=== PATIENT | male | born 1965 | race Caucasian/White ===

== ENCOUNTER 2019-06-28 10:36 | Outpatient (REF) | payer OTHER, SELFPAY ==
[2019-06-28 14:11] LABS: Bilirubin Negative (Negative); Blood Negative (Negative); Clarity Clear (Clear); Glucose Negative (Negative); Ketones Negative (Negative); Leukocyte Esterase Negative (Negative); Nitrite Negative (Negative); Urobilinogen 0.2 EU/dL (Up TO 0.2)
== END 2019-06-28 10:56 ==
LOC: LBN 10:36
PROVIDERS: PCP Emergency Medicine; Visit Provider Emergency Medicine
DX: R31.9 Hematuria, unspecified (principal)
CPT/HCPCS: 81003

== ENCOUNTER 2020-04-13 08:06 | Outpatient (CLI) | payer OTHER, SELFPAY | END 2020-04-13 08:26 | PROVIDERS: PCP Emergency Medicine; Visit Provider Emergency Medicine | DX: Z11.59 Encounter for screening for other viral diseases (principal) | CPT/HCPCS: U0003 ==

== ENCOUNTER 2020-04-17 11:59 | Outpatient (CLI) | payer OTHER, SELFPAY ==
[2020-04-18 11:58] LABS: COVID-19 RT-PCR UVMMC Result Negative (Negative)
== END 2020-04-17 12:19 ==
PROVIDERS: PCP Emergency Medicine; Visit Provider Emergency Medicine
DX: Z11.59 Encounter for screening for other viral diseases (principal)
CPT/HCPCS: U0003

== ENCOUNTER 2020-06-21 02:29 | Outpatient (CLI) | payer OTHER, SELFPAY ==
--- NOTE | 2020-06-21 08:50 | DI.RAD_ITS ---
EXAM: XR SHOULDER RT COMPLETE 2+V CLINICAL HISTORY: trauma,RT SHOULDER PAIN,M25.511. TECHNIQUE: 2D digital imaging was performed. COMPARISON: CR CHEST 2 VIEWS PA,LAT from 01/16/2013 FINDINGS: BONES: No acute fracture is present. No bony destructive lesion is seen. The visualized portions of the right ribs appear intact. JOINTS: No dislocation present. The AC joint is not widened. Are degenerative changes at the AC j oint and tip of the acromion. Mild degenerative changes are also seen at the glenohumeral joint. SOFT TISSUE: Normal. No pneumothorax is seen. IMPRESSION: Degenerative changes. No evidence of acute fracture. DATA REPOSITORY: RADIATION DOSE DELIVERED:
== END 2020-06-21 02:49 ==
PROVIDERS: PCP Emergency Medicine; Visit Provider Emergency Medicine
DX: M19.011 Primary osteoarthritis, right shoulder (principal)
CPT/HCPCS: 73030

== ENCOUNTER 2020-07-27 13:41 | Outpatient (REF) | payer OTHER, SELFPAY ==
[2020-07-27 13:51] LABS: Calculated LDL 99 mg/dL (<100); Cholesterol 169 mg/dL (<200); HDL Cholesterol 49 mg/dL (40-60); Triglyceride 109 mg/dL (<150)
[2020-07-27 22:33] LABS: PSA, Screening 0.5 ng/mL (0.0-3.5)
== END 2020-07-27 14:01 ==
LOC: LBN 13:41
PROVIDERS: PCP Emergency Medicine; Visit Provider Emergency Medicine
DX: Z00.00 Encounter for general adult medical examination without abnormal findings (principal); Z13.220 Encounter for screening for lipoid disorders; Z12.5 Encounter for screening for malignant neoplasm of prostate
CPT/HCPCS: 80061; 84153

== ENCOUNTER 2020-08-09 01:26 | Outpatient (CLI) | payer OTHER, SELFPAY ==
--- NOTE | 2020-08-09 06:45 | DI.MRI_ITS ---
EXAM: MR UPPER JOINT RT WO CLINICAL HISTORY: Traumatic rotator cuff tear with profound weakness,RUPTURE RT PROX BICEPS. TECHNIQUE: Multiplanar multisequence MRI was performed. COMPARISON: CR XR SHOULDER RT COMPLETE 2+V from 06/21/2020 FINDINGS: MR examination of the shoulder was performed according to the usual protocol. Bones: No fracture identified. There are moderate hypertrophic degenerative changes of the acromiocl avicular joint. There is mild marginal osteophyte formation of the glenoid and the humeral head. Mi ld subchondral cyst formation greater tuberosity of the humerus noted. Labrum: Labrum is not ideally evaluated on this noncontrast study but no definite labral tear is seen . There is some effacement of the labral contour. This is presumably degenerative. Biceps tendon: Biceps anchor is poorly visualized. Proximal biceps appears torn and retracted, proba lupe by about 2 cm. Some remaining fibers of the tendon appear to be displaced from the bicipital asya ove. Visualization of biceps is also limited proximally by tearing in the subscapularis tendon and r otator interval. Rotator cuff: There is a massive rotator cuff tear with detachment of the entire supraspinatus tendon and retraction by 4-5 cm, there is longitudinal full-thickness tearing of the subscapularis extendin g from the myotendinous junction region to the distal tendon with full-thickness tears also present a t the humeral attachment with partially retracted tendon by about 1 cm. There is a full-thickness tear of the infraspinatus tendon with marked fraying of the distal aspect, mild retraction of portions of the tendon anteriorly are noted. There is tearing in the myotendinous junction and tendon of the teres minor as well without retraction. There does not appear to be significant fatty replacement of the rotator cuff musculature. IMPRESSION: Massive rotator cuff tear with marked retraction particularly of the supraspinatus tendon component a nd retraction of superior aspect of torn infraspinatus and subscapularis tendons. Poorly defined proximal biceps tendon tear, approximately 2 cm retraction. DATA REPOSITORY:
== END 2020-08-09 01:46 ==
PROVIDERS: PCP Emergency Medicine; Visit Provider Student in an Organized Health Care Education/Training Program
DX: S46.011A Strain of muscle(s) and tendon(s) of the rotator cuff of right shoulder, initial encounter (principal); S46.211A Strain of muscle, fascia and tendon of other parts of biceps, right arm, initial encounter
CPT/HCPCS: 73221

== ENCOUNTER 2020-08-14 07:49 | Outpatient (CLI) | payer OTHER, SELFPAY ==
[2020-08-16 08:39] LABS: SARS-CoV-2 RNA Not Detected (NotDetected); SARS-CoV-2 RNA Source Nasal/Nares
== END 2020-08-14 08:09 ==
PROVIDERS: PCP Emergency Medicine; Visit Provider Student in an Organized Health Care Education/Training Program
DX: Z01.818 Encounter for other preprocedural examination (principal); S46.211A Strain of muscle, fascia and tendon of other parts of biceps, right arm, initial encounter; S46.011A Strain of muscle(s) and tendon(s) of the rotator cuff of right shoulder, initial encounter
CPT/HCPCS: U0003

== ENCOUNTER 2020-08-17 06:06 | Day surgery (SDC) | payer OTHER, SELFPAY ==
[2020-08-17] VITALS (7 sets, daily range): BP systolic 113–121; BP diastolic 64–77; PULSE 59–64; RESP 15–18; TEMP 36.2–36.7; O2SAT 95–99
[2020-08-17] MEDS: Lactated Ringers 1,000 ML 100 ML IV (07:04)
[2020-08-17] MEDS: ceFAZolin 2 GM/50 ML BAG IVPB (07:28)
[2020-08-17] MEDS: EPINEPHrine 30 MG/30 ML VIAL (10:36)
--- NOTE | 2020-08-17 10:53 | W.PM.DSUDISC ---
Discharge Plan Disposition Patient Disposition: HOME Condition: Stable Discharge Details Reason For Visit: Right shoulder surgery Attending Provider: Rich Beckett Primary Care Provider: Grzegorz Blair Home Meds and New Rx's Prescriptions: New naproxen 250 mg tablet 250 - 500 mg PO BID PRN (Reason: Moderate pain or swelling) Qty: 60 RF: 0 aspirin 81 mg tablet,delayed release (DR/EC) 81 mg PO DAILY 14 Days Qty: 14 RF: 0 oxycodone 5 mg tablet 5 - 10 mg PO Q4H PRN (Reason: moderate to severe pain) Qty: 22 RF: 0 Discharge Instructions Additional Instructions: Surgery: Shoulder arthroscopy with massive rotator cuff repair, subacromial decompression, and extensive debridement Activity: You should keep your arm at your side in a neutral position at all times except for physical therapy. Do not try to lift or raise your arm using your own muscles. You should use the sling whenever you are out of the house. You may have to adjust the abduction pillow or remove it for comfort. At home it is best to remove the sling and rest the arm on a pillow at your side or support the operative side with your other hand. You may allow the arm to dangle at your side. A physical therapy prescription will be provided separately today and sent electronically to begin in about 3 weeks. Prescriptions: Aspirin 81 mg take 1 daily to prevent a blood clot for 2 weeks Naproxen 250 mg take 1-2 every 12 hours with a meal as needed for moderate pain Oxycodone 5 mg take 1-2 every 4-6 hours as needed for severe pain You may use uyyi-gfw-mhdvyxc Tylenol (acetaminophen) as needed for mild pain. These pain medications may be taken all at once or in different combinations as needed. Also, recommend Colace (docusate) as a stool softener as surgery and pain medicine cause constipation. Dressings: Remove shoulder bandage after 3 days. Leave the sticky Steri-Strips in place until they fall off or remove them after you shower. Cover the incisions with Band-Aids or leave them open to air. You may shower after 5 days. Follow-up: 10-[address] Beckett You may take off the leg compression stockings this evening at home. You may also leave them on a few days longer if you have a history of leg swelling or edema. Let us know right away if you develop any redness, drainage, fevers, chest pain, or trouble breathing. Do not drink alcohol or drive for at least 24 hours after anesthesia. Please call the office during business hours with any questions or concerns. Referrals: Rich Beckett MD [ [facility] STAFF PHYSICIAN] - Discharge Orders Discharge Orders: Discharge Order (Routine); Ordered 08/17/20 Ordered By: Rich Beckett DS: Diagnosis Discharge Diagnosis (1) Traumatic tear of right rotator cuff: Status: Acute (2) Rupture of right proximal biceps tendon: Status: Acute
--- NOTE | 2020-08-17 11:14 | ROE_ITS ---
Date of service: 08/17/20 Time of Service: 10:53 Operative Note Operative Note DATE OF PROCEDURE: 08/17/20 PRE-OP DIAGNOSIS: Right: 1. Massive rotator cuff tear 2. Proximal biceps tendon rupture POST-OP DIAGNOSIS: other Right: 1. Massive rotator cuff tear 2. Proximal biceps tendon rupture 3. Bursitis PROCEDURE: Right: 1. Rotator cuff repair, CPT# 16450; Modifier 22: By all definitions, this was a massive full-thickness retracted rotator cuff tear requiring significantly increased preoperative counseling, operative time, surgical difficulty, increased number of implants, and will require more frequent postoperative attention with a higher risk for complication/failure. This involved repair of the subscapularis, supraspinatus, and infraspinatus using anchors and sutures to reattach the rotator cuff back to the footprint of the lesser and greater tuberosity. 2. Extensive debridement, CPT# 03204. This involved using arthroscopic hand instruments, power instruments, and radiofrequency instruments to release debride areas of labral tearing, synovitis, and chondromalacia about the biceps groove within the glenohumeral joint anteriorly, superiorly and posteriorly. 3. Subacromial decompression with partial acromioplasty, CPT# 62882. This involved using arthroscopic power instruments and a radiofrequency wand to complete a bursectomy pathologic bursa and remove bone spurs on the undersurface of the acromion. The agency sales management assistant was medically required in order to help assist in techniques above, which require positioning the arm, holding the arthroscope, and manipulating multiple instruments and sutures at the same time. This cannot be done without the help of an experienced agency sales management assistant. SURGEON: Rich Beckett GAGE DESIGNER: Ashely Zaragoza ANESTHESIA: GETA and regional ESTIMATED BLOOD LOSS: 15 PATHOLOGY: none sent COMPLICATIONS: None Patient was transported to: PACU Patient's condition: stable Implants: Arthrex: 4.75mm SwiveLocks x 8 Indications: The patient was diagnosed with the above conditions and appropriately indicated for surgical intervention. Please see complete medical record for details. Findings: Exam under anesthesia: Full, symmetrical range of motion without instability Glenohumeral joint: Significant synovitis anteriorly, superiorly, and posteriorly. Prior long head of the biceps tendon rupture. SLAP tear fraying as well as anterior and posterior labral fraying. Nearly full-thickness sub scapularis tear and full-thickness superior rotator cuff tear with disruption and retraction of the comma tissue and rotator cable. Subacromial space: Significant pathologic bursitis, especially centrally and posteriorly. Full-thickness retracted to the level of the glenoid complete supraspinatus tear and majority infraspinatus tears. Moderate undersurface subacromial bone spur. Procedure Description: In the operating room, general anesthesia was induced. Bilateral shoulders were examined. The patient was positioned in the beachchair position. All bony prominences were well-padded. Preoperative antibiotics were administered. The shoulder was prepped and draped in the usual sterile fashion. The correct patient, procedure, and side of the procedure were all verified prior to incision. Starting through the posterior portal a standard complete diagnostic arthroscopy was performed of the glenohumeral joint including inspection of the long head of the biceps, anterior and superior labrum, subscapularis tendon, supraspinatus and infraspinatus tendons, and axillary recess. The glenoid and humeral head cartilage as well as the posterior labrum were inspected from an anterior viewing portal. Significant findings and interventions noted above. The biceps tendon had been chronically ruptured and there was no labral stump/remnant in the joint. The lesser tuberosity footprint was prepared using hand and power instruments for tendon healing. A rigid cannula was inserted anteriorly. The arm was positioned in neutral. Using a 1 portal technique, a suture lasso was used to pass a suture tape fiber link through the lateral and superior subscapularis. This stitch was used for traction and passing of a fiber tape more medially and centrally in the subscapularis tendon body. The punch was used to localize placement of the anchor. Both sutures were passed through the anchor eyelet and the anchor was brought down to the bone with the sutures tensioned appropriately. The arm was brought through full external rotation demonstrating no restricted motion due to the repair and secure fixation of the tendon and anchor to bone. Starting through the posterior portal, the arthroscope was directed into the subacromial space. A lateral 50 yard line lateral portal was created. A combination of power instruments and a radiofrequency ablator were used to debride bursitis anteriorly, posteriorly, and laterally as well as expose and smooth bone spurring on the undersurface of the acromion. The coracoacromial ligament was preserved. The bursectomy was completed viewing laterally and working from posteriorly and anteriorly, and the rotator cuff was thoroughly inspected with findings noted above. Cannulas were inserted at the superior anterior lateral and superior posterior lateral margins of the acromion as well as at the lateral 50 yard line portal. The rotator cuff tear was inspected and debrided of frayed tissue at the margins exposing a massive full-thickness retracted supraspinatus infraspinatus tears. The greater was tuberosity cleared of fibrous tissue over the footprint and the bursectomy was extended posteriorly and laterally. A punch was used to localize placement the first medial row anchor starting anteriorly that was loaded with fiber tape. A suture passer was as well as a tissue grasper was used to pass both ends of this fiber tape through all layers of the tendon at the appropriate level medially. A second middle medial row anchor was inserted. A self retrieving suture passer was used to pass each end of this fiber tape through all layers of the tendon at the appropriate level medially. This process was repeated for the third posterior medial row anchor. This process was repeated for a third posterior medial row anchor. Next, a self retrieving suture passer was used to pass fiber link sutures in cinch mode anterior to the first medial row anchor, between each of the anchors, and posterior to the third medial row anchor. The rotator cuff tear was provisionally reduced through these fiber link sutures and secured to a middle row suture anchor. Lastly, a fiber tape f rom the anterior and middle anchors was brought to an anterior lateral row anterior anchor and this process repeated and then expanded suture bridge fashion for the middle and posterior lateral row anchors. An additional fiber link suture was placed most posteriorly in the infraspinatus and incorporated into the posterior lateral row anchor. Excellent tendon compression over the reduced rotator cuff repair was achieved. The repair was inspected through shoulder range of motion and found to be stable with secure fixation. The shoulder was drained of arthroscopic fluid. All portal sites were copiously irrigated. These incisions were closed using 3-0 Monocryl in a buried fashion, covered with Mastisol, Steri-Strips, Xeroform, dry gauze, and ABDs. The dressings were covered and secured with Medipore tape. The operative extremity was placed into a sling for immobilization. The patient awoke from anesthesia without complication and was transferred to the recovery room in a stable co ndition.
== END 2020-08-17 13:55 | disposition home or self-care (01) ==
PROVIDERS: PCP Emergency Medicine; Visit Provider Student in an Organized Health Care Education/Training Program
PROC: (CPT 29827; principal; 2020-08-17 07:30)
DX: S46.011A Strain of muscle(s) and tendon(s) of the rotator cuff of right shoulder, initial encounter (principal); M75.51 Bursitis of right shoulder; S46.111A Strain of muscle, fascia and tendon of long head of biceps, right arm, initial encounter; X58.XXXA Exposure to other specified factors, initial encounter
CPT/HCPCS: 29827; 29823; 29826; 76942; L3670; J0690; J1885; J2001; J2250; J2405; J2704; J3010

== ENCOUNTER → 2023-08-31 02:33 | Outpatient (CLI) | payer BC, SELFPAY ==
--- NOTE | 2023-08-31 08:28 | DI.RAD_ITS ---
Exam(s) XR SHOULDER LT COMPLETE 2+V EXAM: XR SHOULDER LT COMPLETE 2+V CLINICAL HISTORY: left shoulder pain, SPRAIN LT AC JOINT, S43.52XA. TECHNIQUE: 2D digital imaging was performed. Three views. COMPARISON: MR MR UPPER JOINT RT WO from 08/09/2020 FINDINGS: BONES: No acute fracture is present. No bony destructive lesion is seen. JOINTS: No dislocation present. Mild degenerative changes of the AC joint. No AC joint widening. G lenohumeral joint space is maintained. SOFT TISSUE: Normal. IMPRESSION: mild degenerative changes of the AC joint. DATA REPOSITORY: RADIATION DOSE DELIVERED:
== END ==
PROVIDERS: PCP Family Medicine; Visit Provider Family Medicine
DX: M19.012 Primary osteoarthritis, left shoulder (principal)
CPT/HCPCS: 73030

== ENCOUNTER → 2023-09-16 09:28 | Outpatient (CLI) | payer BC, SELFPAY ==
--- NOTE | 2023-09-16 09:15 | DI.MRI_ITS ---
Exam(s) MR UPPER JOINT LT WO EXAM: MR UPPER JOINT LT WO CLINICAL HISTORY: lt shoulder pain,? rotator cuff tear,sprain,s43.52xa,m75.102. TECHNIQUE: Multiplanar multisequence MRI was performed. COMPARISON: Plain films 31 August 2023 FINDINGS: BONES: There is no fracture or contusion pattern. JOINTS:The acromioclavicular joint shows mild degenerative changes. The glenohumeral joint is normal . TENDONS: Supraspinatus: High signal within tendon without thickening. Findings greater anteriorly and distall y involving the undersurface fibers. There appears to be a few intact bursal sided fibers. Findings consistent with partial tear. Infraspinatus: Unremarkable. Subscapularis: Unremarkable. Teres Minor: Unremarkable. Biceps and [place]: Unremarkable. MUSCLES: Unremarkable. GLENOID LABRUM: Unremarkable on this noncontrast examination. SOFT TISSUES: Unremarkable. OTHER: Subacromial and subdeltoid bursae shows small amount of fluid. . IMPRESSION: Severe partial tear of the supraspinatus tendon. DATA REPOSITORY:
== END ==
PROVIDERS: PCP Family Medicine; Visit Provider Student in an Organized Health Care Education/Training Program
DX: M75.111 Incomplete rotator cuff tear or rupture of right shoulder, not specified as traumatic
CPT/HCPCS: 73221

== ENCOUNTER 2023-11-27 08:42 | Day surgery (SDC) | payer BC, SELFPAY ==
[2023-11-27] VITALS (9 sets, daily range): BP systolic 122–138; BP diastolic 60–86; PULSE 52–71; RESP 14–20; TEMP 36.4–37; O2SAT 96–100; BMI 27.3
--- NOTE | 2023-11-27 06:27 | W.ANESPRE ---
General Info Date of Service Date Performed: 11/27/23 Height: 5 ft 10 in Weight: 86.636 kg Body Mass Index (BMI): 27.3 Surgical Procedure: Operation Date: 11/27/23 10:55 Proposed Procedure Side Surgeon p Shoulder Rotator Cuff Arthroscopic w/Extensive Debridement, Biceps Tenodesis, Subacromial Decompression Left Rich Beckett MD Meds Allergies and Home Medications Allergies Allergy/AdvReac Type Severity Reaction Status Date / Time No Known Allergies Allergy Verified 11/27/23 09:16 Home Medication Medication Instructions Recorded aspirin 81 mg tablet,delayed 81 mg PO DAILY Prevent blood clot 11/27/23 release 7 days #7 tabs naproxen 250 mg tablet 250 - 500 mg (1 - 2 x 250 mg) PO 11/27/23 BID PRN Moderate pain #40 tabs oxycodone 5 mg tablet 5 - 10 mg (1 - 2 x 5 mg) PO Q4H 11/27/23 PRN Moderate to severe pain #18 tabs Current Visit Medications: Current Medications Generic Name Dose Route Start Last Admin Trade Name Freq PRN Reason Stop Dose Admin Ringer's Solution 1,000 mls @ 30 mls/hr 11/27/23 06:00 IV 11/27/23 23:59 INFUSION MADELEINE Cefazolin Sodium/Dextrose 2 gm in 50 mls @ 100 mls/hr 11/27/23 06:00 Ancef Duplex IVPB 11/27/23 23:59 PREOP MADELEINE IV Miscellaneous Supplies 1 each 11/27/23 06:00 Iv Access IV 11/27/23 23:59 DIRECTED MADELEINE Sodium Chloride 0 ml 11/27/23 06:00 Normal Saline Flush 10 Ml Syr IV 11/27/23 23:59 PRN PRN Sodium Chloride 0 ml 11/27/23 06:00 Normal Saline 10 Ml Vial IJ 11/27/23 23:59 DIRECTED PRN Sterile Water 0 ml 11/27/23 06:00 Water,Injection,Sterile 10 Ml Vial IJ 11/27/23 23:59 DIRECTED PRN PFSH Active Problems Active Problems: Problem Status Onset Code Bursitis of left shoulder M75.52 Tendinitis of long head of biceps brachii of left shoulder M75.22 Left rotator cuff tear 07/09/23 M75.102 Sleep disorder G47.9 Medical History Medical History Rupture of right proximal biceps tendon (~10/2009) seen on MRI Traumatic tear of right rotator cuff (~06/2020) Surgical History Surgical History S/P repair of hydrocele S/P rotator cuff repair (~08/2020) right; [facility] Colonoscopy - MAC (07/13/17) scattered diverticula and hyperplastic polyp Tobacco Smoking/Tobacco Use Status: Current-Occasional Tobacco Type: smokeless tobacco Smokeless tobacco user: chewing tobacco and snuff Passive smoking exposure: Yes Second hand exposure: No Counseling given: provider counseling Alcohol Alcohol Intake: current Alcohol intake frequency: a few times a month Alcohol type: beer and hard liquor Substance Use Substance use: Never Substance use type: does not use Vital Signs and Lab Results Vital Signs Most Recent Vital Signs in EMR: Temp Pulse Resp BP Pulse Ox 36.4 C L 60 16 129/72 100 11/27/23 08:50 11/27/23 08:50 11/27/23 08:50 11/27/23 08:50 11/27/23 08:50 Lab Results Blood Type / Crossmatch: No Data to Display Complete Blood Count: No Data to Display Complete Metabolic Panel: No Data to Display Liver Function Panel: No Data to Display Coagulation Panel: No Data to Display Cardiac Panel: No Data to Display Arterial Blood Gas: No Data to Display Venous Blood Gas: No Data to Display Pancreas Panel: No Data to Display Thyroid Panel: No Data to Display Infectious Disease: No Data to Display Blood Cultures: No Data to Display Toxicology Panel: No Data to Display Anesthesia Assessment and Plan Anesthesia History Personal History: No History of Anesthesia Complications Family History: No Family History of Anesthesia Complications Exercise Tolerance Exercise Tolerance: Metabolic Equivalents>4 Cardiac & Pulmonary Exam Cardiac Exam: Normal S1/S2 Heart Sounds Pulmonary Exam: Clear Bilateral Breath Sounds Implantable Cardiac Device Does patient have a Pacemaker or an ICD?: No Airway Exam Known Difficult Airway: No Mallampati Class: 1 Mouth Opening: Normal (> 3cm) Thyromental Distance: Greater than 3 cm Neck Range of Motion: Full ROM Neck Circumference: Normal Teeth Condition: Normal Dentition ASA Classification ASA Score: ASA 2 Emergency Case?: No NPO Status NPO Status: NPO Clears >2 hours, Solids >8 hours Anesthesia Plan Resuscitation Status: Full Code Anesthesia Technique: General Anesthesia Airway Planned: Endotracheal Tube Pain Management: Surgeon and patient request nerve block Monitors Used: Standard Monitors Preoperative Comments:: 58 yo male for shoulder scope. Sig PMHx: DARRELL (no CPAP), chewing tobacco, occ EtOh. Denies major, no home medication. Previous Anes: - shoulder, mac 3 grade 2b, easy mask with OPA, ISB with 12 mL 0.5%/10 mL exparel with 2mg Midaz. 0/10 on post op. Block wore off quickly and was in pain. - colo, prop, natural airway, no issues.
--- NOTE | 2023-11-27 07:09 | W.PM.DSUDISC ---
Date of service: 11/27/23 Time of Service: 15:30 Discharge Plan Disposition Patient Disposition: Home Condition: Stable Discharge Details Attending Provider: Rich Beckett Primary Care Provider: Diana Ngo Home Meds and New Rx's Prescriptions: New aspirin 81 mg tablet,delayed release (DR/EC) 81 mg PO DAILY 7 Days Qty: 7 0RF naproxen 250 mg tablet 250 - 500 mg PO BID PRN (Reason: Moderate pain) Qty: 40 0RF oxycodone 5 mg tablet 5 - 10 mg PO Q4H PRN (Reason: Moderate to severe pain) Qty: 18 0RF Discharge Instructions Additional Instructions: Surgery: Left shoulder arthroscopy with rotator cuff repair (supraspinatus), biceps tenodesis, extensive debridement, and subacromial decompression. Activity: For 6 weeks, you should keep your arm at your side in a neutral position at all times except for physical therapy. Do not try to lift or raise your arm using your own muscles. You should use the sling whenever you are out of the house. You may have to adjust the abduction pillow or remove it for comfort. At home it is best to remove the sling and rest the arm on a pillow at your side or support the operative side with your other hand. You may allow the arm to dangle at your side. A physical therapy prescription will be sent electronically to begin in about 3 weeks. STANDARD protocol. Prescriptions: Aspirin 81 mg take 1 daily to prevent a blood clot for 7 days Naproxen 250 mg take 1-2 every 12 hours with a meal as needed for moderate pain Oxycodone 5 mg take 1-2 every 4-6 hours as needed for severe pain You may use swac-yik-yxelybb Tylenol (acetaminophen) as needed for mild pain. These pain medications may be taken all at once or in different combinations as needed. Also, recommend Colace (docusate) as a stool softener as surgery and pain medicine cause constipation. You may try ccvk-nus-izjpyzi diphenhydramine (Benadryl) 25-50 mg nightly as a sleep aid Dressings: Remove shoulder bandage after 3 days. Leave the sticky Steri-Strips in place until they fall off or remove them after you shower. Cover the incisions with Band-Aids or leave them open to air. You may shower after 5 days. Follow-up: 10-[address] Beckett You may take off the leg compression stockings this evening at home. You may also leave them on a few days longer if you have a history of leg swelling or edema. Let us know right away if you develop any redness, drainage, fevers, chest pain, or trouble breathing. Do not drink alcohol or drive for at least 24 hours after anesthesia. Please call the office during business hours with any questions or concerns. Discharge Orders Discharge Orders: Discharge Order (Routine); Ordered 11/27/23 Ordered By: Cuate Curiel DS: Diagnosis Discharge Diagnosis (1) Left rotator cuff tear: Status: Acute
--- NOTE | 2023-11-27 07:28 | W.PM.OP ---
Date of service: 11/27/23 Time of Service: 12:00 Operative Note Operative Note DATE OF PROCEDURE: 11/27/23 PRE-OP DIAGNOSIS: Left: 1. Rotator cuff tear 2. LHB tendinopathy 3. Bursitis POST-OP DIAGNOSIS: same PROCEDURE: Left: 1. Rotator cuff repair, CPT# 54377. This involved repair of the supraspinatus using sutures and anchor to reattach the rotator cuff back to the footprint of the greater tuberosity. 2. Arthroscopic biceps tenodesis, CPT# 83835. This involved arthroscopically suturing and reattaching the long head of the biceps tendon to the proximal humerus at the superior margin of the bicipital groove with a screw at the correct tension. 3. Extensive debridement, CPT# 58883. This involved using arthroscopic hand instruments, power instruments, and radiofrequency instruments to release the long head of the biceps tendon and debride areas of anterior labral tearing, SLAP tearing, rotator interval synovitis, and partial subscapularis tearing working within the glenohumeral joint anteriorly, superiorly and posteriorly. 4. Subacromial decompression with partial acromioplasty, CPT# 72909. This involved using arthroscopic power instruments and a radiofrequency wand to complete a bursectomy and smooth the undersurface of the acromion. The assistant front office manager was medically required in order to help assist in techniques above, which require positioning the arm, holding the arthroscope, and manipulating multiple instruments and sutures at the same time. This cannot be done without the help of an experienced assistant front office manager. SURGEON: Rich Beckett SUPPLIER QUALITY SPECIALIST: Cuate Curiel ANESTHESIA TYPE: Local By Surgeon, General LMA/ETT and Primary Nerve Block Refer to Anesthesia Record ESTIMATED BLOOD LOSS: 5 PATHOLOGY: none sent COMPLICATIONS: None Patient was transported to: PACU Patient's condition: stable Implants: Arthrex: 4.75mm SwiveLock x 1 and 5.5mm SwiveLock x1 Indications: The patient was diagnosed with the above conditions and appropriately indicated for surgical intervention. Please see complete medical record for details. Findings: Exam under anesthesia: Full range of motion, no instability Glenohumeral joint: Mild generalized chondromalacia, mild partial upper and central subscapularis tearing fraying, largely structurally intact. Significant maybe 50% partial long head biceps tendon tearing with partial medial subluxation disrupted biceps sling, inflamed biceps anchor and SLAP tear, moderate redundant fraying anterior labral tearing. Small articular delaminated central supraspinatus tear covered by separate bursal layer. Subacromial space: Mild bursitis, minimal undersurface acromial bone spurring, medium size supraspinatus supraspinatus tear with delaminated layers and propagation articular layers slightly more anteriorly and posteriorly. Generalized rotator cuff tendinopathy and fraying. Procedure Description: In the operating room, general anesthesia was induced. Bilateral shoulders were examined. The patient was positioned in the beachchair position. All bony prominences were well-padded. Preoperative antibiotics were administered. The shoulder was prepped and draped in the usual sterile fashion. The correct patient, procedure, and side of the procedure were all verified prior to incision. Starting through the posterior portal a standard complete diagnostic arthroscopy was performed of the glenohumeral joint including inspection of the long head of the biceps, anterior and superior labrum, subscapularis tendon, supraspinatus and infraspinatus tendons, and axillary recess. The glenoid and humeral head cartilage as well as the posterior labrum were inspected from an anterior viewing portal. Significant findings and interventions noted above. Subscapularis only required a small amount of debridement, was stable through testing did not require repair. The supraspinatus tear was localized articular, the articular exposed area was prepared from inside the joint, a spinal needle was used to jovanna placement prior to going to the bursal space. An all-arthroscopic suprapectoral biceps tenodesis was performed through an anterior portal using a Loop N Tack method with a SutureTape FiberLink cinched around and through the tendon. The biceps was tenotomized from the labrum and fixated with a suture anchor at the superior margin of the bicipital groove. Starting through the posterior portal, the arthroscope was directed into the subacromial space. A lateral 50 yard line lateral portal was created. A combination of power instruments and a radiofrequency ablator were used to debride bursitis anteriorly, posteriorly, and laterally as well as expose and smooth bone spurring on the undersurface of the acromion. The coracoacromial ligament was partially released. The bursectomy was completed viewing laterally and working from posteriorly and the rotator cuff was thoroughly inspected with findings noted above. The rotator cuff and obvious bursal defect that led to the separate articular layer defect for a medium sized central supraspinatus full-thickness tear. The anterior posterior margins contained good tissue. There was no need to detach the tendon for more exposure or repair. Working through the tear for the remaining central to lateral portions were lightly debrided, rasp, the footprint was optimized for bone and tendon healing and tear measured to his extent using the cuff grasper. The self retrieving suture passer was used to place a central inverted horizontal mattress FiberTape and then an additional FiberLink suture tape in cinch mode anteriorly and posteriorly incorporating the anterior supraspinatus and posterior supraspinatus and infraspinatus junction. All 4 repair tails were brought out the lateral Julia cannula, arm position optimized, and reduction confirmed through the rigid cannula insert. A single lateral row anchor was punched and placed using an oversized 5.5 mm SwiveLock to secure all repair sutures. Repair had excellent fixation strength, was stable through testing and range of motion, the repair was completed with no additional sutures needed. The shoulder was drained of arthroscopic fluid. All portal sites were copiously irrigated. These incisions were closed using 3-0 Monocryl in a buried fashion and then covered with Mastisol, Steri-Strips, Xeroform, dry gauze, and ABDs. The dressings were covered and secured with Medipore tape. The operative extremity was placed into a sling for immobilization. The patient awoke from anesthesia without complication and was transferred to the recovery room in a stable condition.
[2023-11-27] MEDS: Lactated Ringers 1,000 ML 30 ML IV (09:56)
[2023-11-27] MEDS: ceFAZolin 2 GM/50 ML BAG IVPB (11:46)
--- NOTE | 2023-11-27 11:46 | W.ANESNERVE ---
Nerve Block Single Injection Procedure Date and Time Date Performed: 11/27/23 Procedure Start: 11:30 Location Where Procedure Performed Procedure Location: Day Surgery Unit Reason Performed: Postoperative Analgesia Requesting Provider: Rich Beckett Timeout Performed Timeout Performed: Yes Monitoring Used ECG, Blood Pressure and SpO2 Sterility Sterility: Hand Hygiene, Surgical Cap, Surgical Mask, Sterile Gloves and Chlorhexidine Sedation Given During Procedure Sedation Given (Indicate Dose Given): Versed IV Dose:: 3 mg Patient Mental Status Patient Mental Status: Sedate with meaningful communication Nerve Block 1st Nerve Block: Laterality: Left Block Type: Interscalene Ultrasound Image Saved?: Yes Needle / Catheter Used: 100mm SonoPlex II Local Anesthetic Bolus (Indicate Dose Given): Lidocaine used for local infiltration of skin, Injected in 3-5ml increments after negative blood aspiration, Bupivacaine 0.5% ( ) Dose:: 10 mL and Exparel Dose:: 10 mL Additives (Indicate Dose Given): None Ultrasound: Sterile probe cover and gel used Nerve Stimulator: Supplement to Ultrasound use and No twitch or parasthesia noted < 0.5 mA Paresthesia: None Procedure Tolerated: No Complications Procedure Outcome: Successful Performed By: Mick Frederick
[2023-11-27] MEDS: Tranexamic Acid 1,000 MG/10 ML VIAL 1000 MG (11:55)
[2023-11-27] MEDS: EPINEPHrine 10 MG/10 ML ML (13:51)
[2023-11-27] MEDS: Bupivacaine 0.25% Pres-Free 30 ML VIAL (13:52)
--- NOTE | 2023-11-27 14:25 | W.ANESPOSTOP ---
Postoperative Evaluation Date, Time and Location Date Performed: 11/27/23 Time Performed: 14:25 Patient Location: PACU Vital Signs Most Recent Imported Vital Signs: Most Recent Vital Signs Temp Pulse Resp BP Pulse Ox 36.7 C 69 16 123/67 97 11/27/23 14:21 11/27/23 14:21 11/27/23 14:21 11/27/23 14:21 11/27/23 14:21 Pain Score Most Recent Pain Score: Most Recent Pain Score Pain Level 0 11/27/23 14:21 Assessment Mental Status: Awake (Alert & Oriented to Patient Baseline) Airway and Respiratory Function: Patent airway with normal (patient baseline) respiratory exam Cardiovascular Function: Hemodynamically Stable Hydration Status: Adequately Hydrated Nausea & Vomiting: No Nausea or Vomiting Pain: Pt. Denies Any Pain Peripheral Nerve Block: Regional nerve block not resolved at time of post operative discharge
== END 2023-11-27 15:55 | disposition home or self-care (01) ==
PROVIDERS: PCP Family Medicine; Visit Provider Student in an Organized Health Care Education/Training Program
PROC: (CPT 29827; principal; 2023-11-27 10:45)
DX: M75.102 Unspecified rotator cuff tear or rupture of left shoulder, not specified as traumatic (principal); M75.52 Bursitis of left shoulder; M75.22 Bicipital tendinitis, left shoulder
CPT/HCPCS: 29827; 29826; 29828; 29823; 76942; C9290; J0131; J0665; J0690; J1100; J1885; J2250; J2371; J2405; J2704

== ENCOUNTER 2024-08-25 01:56 | Outpatient (CLI) | payer BC, SELFPAY ==
[2024-08-25 13:45] LABS: Anion Gap 9.9 mmol/L (3-11); BUN 30 mg/dL (7-18); CO2 25.1 mmol/L (21.0-32.0); CREATININE 1.2 mg/dL (0.70-1.30); Calcium 8.8 mg/dL (8.5-10.1); Calculated LDL 93 mg/dL (<100); Chloride 109 mmol/L (98-107); Cholesterol 202 mg/dL (<200); Glucose 102 mg/dL (74-106); HDL Cholesterol 47 mg/dL (40-60); Sodium 144 mmol/L (136-145); Triglyceride 311 mg/dL (<150)
[2024-08-25 22:26] LABS: PSA, Screening 0.9 ng/mL (<=3.5)
[2024-08-25 23:03] LABS: Hepatitis C Ab w Rflx HCV PCR Negative (Negative)
[2024-08-25 23:05] LABS: HIV-1/2 Ag & Ab Screen Negative (Negative)
== END 2024-08-25 01:57 | disposition home or self-care (01) ==
PROVIDERS: PCP Family Medicine; Visit Provider Family Medicine
DX: Z13.6 Encounter for screening for cardiovascular disorders (principal); Z13.1 Encounter for screening for diabetes mellitus; Z12.5 Encounter for screening for malignant neoplasm of prostate; Z11.4 Encounter for screening for human immunodeficiency virus [HIV]; Z11.59 Encounter for screening for other viral diseases
CPT/HCPCS: 36415; 80048; 80061; 84153; 86803; 87389

== ENCOUNTER 2025-05-04 02:47 | Outpatient (CLI) | payer BC, SELFPAY ==
[2025-05-04 17:51] LABS: PSA, Screening 0.8 ng/mL (<=3.5)
== END 2025-05-04 02:48 | disposition home or self-care (01) ==
LOC: LBO 02:48
PROVIDERS: PCP Family Medicine; Visit Provider Family Medicine
DX: Z12.5 Encounter for screening for malignant neoplasm of prostate (principal)
CPT/HCPCS: 36415; 84153

== ENCOUNTER 2025-09-14 01:38 | Outpatient (CLI) | payer BC, SELFPAY ==
[2025-09-14 08:49] LABS: Anion Gap 6.5 mmol/L (3-11); BUN 18 mg/dL (9-23); CO2 26.5 mmol/L (20.0-31.0); Calcium 8.7 mg/dL (8.3-10.6); Chloride 108 mmol/L (98-107); Cholesterol 191 mg/dL (<200); Glucose 99 mg/dL (74-106); HDL Cholesterol 50 mg/dL (>40); Potassium 4.2 mmol/L (3.5-5.1); Sodium 141 mmol/L (136-145)
== END 2025-09-14 01:39 | disposition home or self-care (01) ==
LOC: LBO 01:38
PROVIDERS: PCP Family Medicine; Visit Provider Family Medicine
DX: Z13.1 Encounter for screening for diabetes mellitus (principal); Z13.6 Encounter for screening for cardiovascular disorders
CPT/HCPCS: 36415; 80048; 80061